=== PATIENT | female | born 1940 | race Caucasian/White ===

== ENCOUNTER 2017-09-24 09:50 | Emergency (ER) | payer MEDICARE, OTHER ==
[2017-09-24 10:11] VITALS: BP 157/78
--- NOTE | 2017-09-24 10:40 | EDM.PDOC ---
ED HPI GENERAL MEDICAL PROBLEM - General Chief Complaint: General Stated Complaint: MEDICAL VIA [facility] Time Seen by Provider: 09/24/17 10:22 Source of Information: Reports: Patient, RN Notes Reviewed History Limitations: Reports: No Limitations - History of Present Illness INITIAL COMMENTS - FREE TEXT/NARRATIVE: This 76-year-old female presents emergency department today via EMS services for sudden onset of nausea and vomiting, she states she's had this for the last couple days does have a history of vertigo she states this particular event started when she rolled over in bed put her head to the left side sudden onset of nausea and vomiting, feels like typical events she's had in the past also does have a history of ovarian cancer - Related Data Allergies Allergy/AdvReac Type Severity Reaction Status Date / Time Sulfa (Sulfonamide Allergy Unknown Rash Verified 09/13/14 11:36 Antibiotics) codeine AdvReac Unknown Vomiting Verified 09/13/14 11:36 Home Meds: Home Meds Aspirin 81 mg PO DAILY 06/16/13 [History] Etodolac 400 mg PO BID 06/16/13 [History] Levothyroxine Sodium [Synthroid] 75 mcg PO DAILY 06/16/13 [History] Lisinopril [Prinivil] 20 mg PO DAILY 06/16/13 [History] Nitroglycerin [Nitrostat] 0.4 mg SL ASDIRECTED PRN 06/16/13 [History] Venlafaxine HCl [Venlafaxine ER] 150 mg PO DAILY 06/16/13 [History] Multivitamin [Multivitamins] 1 each PO DAILY 08/21/13 [History] Metoprolol Tartrate [Lopressor] 100 mg PO BID #60 tablet 09/20/14 [Rx] Albuterol Sulfate [Proair Hfa] 2 puff INH Q4H PRN 09/24/17 [History] Nicotine [Nicoderm CQ] 1 patch TOP DAILY 09/24/17 [History] atorvaSTATin [Lipitor] 20 mg PO DAILY 09/24/17 [History] tiZANidine [Zanaflex] 4 mg PO TID PRN 09/24/17 [History] Past Medical History Cardiovascular History: Reports: Hypertension Respiratory History: Reports: Bronchitis, Recurrent 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: Musculoskeletal History: Reports: Back Pain, Chronic Endocrine/Metabolic History: Reports: Hypothyroidism Oncologic (Cancer) History: Reports: Ovarian - Infectious Disease History Infectious Disease History: Reports: Chicken Pox, Measles, Mumps, Shingles - Past Surgical History GI Surgical History: Reports: Appendectomy, Cholecystectomy Musculoskeletal Surgical History: Reports: Knee Replacement Social & Family History - Tobacco Use Smoking Status *Q: Current Every Day Smoker Years of Tobacco use: 50 Packs/Tins Daily: 0.5 Used Tobacco, but Quit: No Month Tobacco Last Used: September Second Hand Smoke Exposure: No - Caffeine Use Caffeine Use: Reports: Coffee - Alcohol Use Days Per Week of Alcohol Use: 1 Number of Drinks Per Day: 2 Total Drinks Per Week: 2 - Recreational Drug Use Recreational Drug Use: No ED ROS GENERAL - Review of Systems Review Of Systems: See Below Constitutional: Denies: Fever, Chills HEENT: Reports: No Symptoms Respiratory: Reports: No Symptoms Cardiovascular: Reports: No Symptoms GI/Abdominal: Reports: No Symptoms : Reports: No Symptoms ED EXAM, GENERAL - Physical Exam Exam: See Below Free Text/Narrative:: General: Female, not in any distress, alert and oriented x3 HEENT: head is atraumatic normocephalic, eyes pupils equal round reactive to light, sclera clear no conjunctivitis appreciated extraocular eye movements intact. Ears tympanic membranes clear and smiley landmarks and light reflex are present bilaterally canals are clear. Nose no septal deviation, nares are clear, no blood present. Mouth mucosa is dry and pink no erythema or exudate noted in soft palate, tongue is midline uvula is midline, dentition is intact. Neck: Supple no thyromegaly no tracheal deviation. Nodes: Cervical nodes subclavicular nodes nontender no palpable lymphadenopathy noted. Lungs: clear to auscultation bilaterally with symmetrical respirations, no adventitious noise appreciated. CV: Regular rate and rhythm S1 and S2 appreciated no murmurs rubs or gallops noted. cover uncover test negative, no saccade on HINTS exam Course - Vital Signs Last Recorded V/S: Last Vital Signs Temp 98.2 F 09/24/17 10:10 Pulse 66 09/24/17 10:10 Resp 23 H 09/24/17 10:10 BP 157/78 H 09/24/17 10:10 Pulse Ox 95 09/24/17 10:10 - Orders/Labs/Meds Orders: Active Orders 24 hr Category Date Time Status UA W/MICROSCOPIC [URIN] Urgent Lab 12/12/17 10:33 Uncollected Labs: Laboratory Tests 09/24/17 09/24/17 Range/Units 10:50 10:50 WBC 9.2 (4.5-11.0) K/uL RBC 4.17 (3.30-5.50) M/uL Hgb 13.2 D (12.0-15.0) g/dL Hct 41.5 (36.0-48.0) % MCV 100 H (80-98) fL MCH 32 H (27-31) pg MCHC 32 (32-36) % Plt Count 466 H (150-400) K/uL Neut % (Auto) 71 H (36-66) % Lymph % (Auto) 17 L (24-44) % [place] % (Auto) 5 (2-6) % Eos % (Auto) 5 H (2-4) % Baso % (Auto) 1 (0-1) % Sodium 142 (140-148) mmol/L Potassium 4.4 (3.6-5.2) mmol/L Chloride 107 (100-108) mmol/L Carbon Dioxide 26 (21-32) mmol/L Anion Gap 9.5 (5.0-14.0) mmol/L BUN 16 (7-18) mg/dL Creatinine 1.3 H (0.6-1.0) mg/dL Est Cr Clr Drug Dosing 30.03 mL/min Estimated GFR (MDRD) 40 L (>60) Glucose 117 H (74-106) mg/dL Calcium 9.2 D (8.5-10.1) mg/dL Total Bilirubin 0.3 (0.2-1.0) mg/dL AST 18 (15-37) U/L ALT 15 D (12-78) U/L Alkaline Phosphatase 109 (46-116) U/L Total Protein 7.2 (6.4-8.2) g/dL Albumin 1.9 L (3.4-5.0) g/dL Globulin 5.3 H (2.3-3.5) g/dL Albumin/Globulin Ratio 0.4 L (1.2-2.2) Meds: Medications Discontinued Medications Generic Name Dose Route Start Last Admin Trade Name Freq PRN Reason Stop Dose Admin Meclizine HCl 25 mg 09/24/17 11:04 09/24/17 11:08 Antivert PO 09/24/17 11:05 25 mg ONETIME ONE Administration Departure - Departure Time of Disposition: 12:39 Disposition: Home, Self-Care 01 Condition: Good Clinical Impression: Vertigo - Discharge Information Referrals: Faith Mackay CNM [Primary Care Provider] - Forms: ED Department Discharge Additional Instructions: Continue your regular medications, try the meclizine 1 tablet up to 3 times a day as needed for dizzy symptoms, Please followup with your primary care provider in 3-5 days if not better, please call return to the emergency department with worsening of symptoms. - My Orders Last 24 Hours: My Active Orders 09/24/17 10:33 UA W/MICROSCOPIC [URIN] Urgent - Assessment/Plan Last 24 Hours: My Active Orders 09/24/17 10:33 UA W/MICROSCOPIC [URIN] Urgent Plan: Assessment Acuity = acute on chronic Site and laterality = exacerbation of vertigo Etiology unclear etiology Manifestations = none Location of injury = Home Lab values = creatinine elevated 1.3 consistent chronic renal failure stage G IIIB albumin low at 1.9 consistent hypoalbuminemia EKG performed in route by EMS demonstrates a normal sinus rhythm no ST changes or elevations noted Plan she had good improvement with meclizine provided with resolution of her symptoms follow-up with her primary care as needed Patient was in agreement with the plan all questions were answered, they were instructed to return to the emergency department or call for worsening symptoms. This note was dictated using [employer] voice recognition software please call with any questions.
[2017-09-24] MEDS ORDERED: Meclizine 25 MG Tab PO ONE (11:04)
== END 2017-09-24 12:54 | disposition home or self-care (01) ==
LOC: JP.ED 09:50
DX: R42 Dizziness and giddiness (principal); I10 Essential (primary) hypertension; E03.9 Hypothyroidism, unspecified; F17.210 Nicotine dependence, cigarettes, uncomplicated; Z79.899 Other long term (current) drug therapy; Z79.82 Long term (current) use of aspirin; Z88.2 Allergy status to sulfonamides; Z88.5 Allergy status to narcotic agent
CPT/HCPCS: 36415; 80053; 85025; 99284; A9270; 99283

== ENCOUNTER 2018-01-11 08:23 | Inpatient (IN) | payer MEDICARE, OTHER ==
[2018-01-11] MEDS ORDERED: Loperamide 1 MG/5 ML Soln 5 ML UD Cup PO ONE (09:12)
[2018-01-11] MEDS ORDERED: Sodium Chloride 0.9% 1,000 ML IV SCH (09:15)
[2018-01-11] MEDS ORDERED: Loperamide 2 MG Cap PO ONE (09:30)
--- NOTE | 2018-01-11 09:32 | EDM.PDOC ---
ED HPI GENERAL MEDICAL PROBLEM - General Chief Complaint: General Stated Complaint: MEDICAL [facility]IA [facility] Time Seen by Provider: 01/11/18 09:28 Source of Information: Reports: Patient History Limitations: Reports: No Limitations - History of Present Illness INITIAL COMMENTS - FREE TEXT/NARRATIVE: pt developed severe jaw pain which wouldn,t go away. She states she took 1 nitro at home and it got alot better. Onset: Today, Sudden, Other (pt just had chemo and she has been having severe diarrhea. ) Duration: Hour(s): Location: Reports: Chest, Other (pt has a history of ovarian ca. ) Associated Symptoms: Reports: Other (diarhea) Denies Pain Score (Numeric/FACES): 0 Generalized Pain Score (Numeric/FACES): 0 - Related Data Allergies Allergy/AdvReac Type Severity Reaction Status Date / Time Sulfa (Sulfonamide Allergy Unknown Rash Verified 01/11/18 09:37 Antibiotics) codeine AdvReac Unknown Vomiting Verified 01/11/18 09:37 Home Meds: Home Meds Aspirin 81 mg PO DAILY 06/16/13 [History] Etodolac 400 mg PO BID 06/16/13 [History] Levothyroxine Sodium [Synthroid] 75 mcg PO DAILY 06/16/13 [History] Lisinopril [Prinivil] 5 mg PO DAILY 06/16/13 [History] Nitroglycerin [Nitrostat] 0.4 mg SL ASDIRECTED PRN 06/16/13 [History] Venlafaxine HCl [Venlafaxine ER] 150 mg PO DAILY 06/16/13 [History] Multivitamin [Multivitamins] 1 each PO DAILY 08/21/13 [History] Metoprolol Tartrate [Lopressor] 100 mg PO BID #60 tablet 09/20/14 [Rx] Albuterol Sulfate [Proair Hfa] 2 puff INH Q4H PRN 09/24/17 [History] atorvaSTATin [Lipitor] 20 mg PO DAILY 09/24/17 [History] tiZANidine [Zanaflex] 4 mg PO TID PRN 09/24/17 [History] Prochlorperazine Maleate [Compazine] 10 mg PO ASDIRECTED PRN 01/08/18 [History] Lactobacillus Rhamnosus GG [Culturelle] 1 cap PO BID #60 cap 01/13/18 [Rx] Pantoprazole [ProTONIX] 40 mg PO DAILY #30 tab.cr 01/13/18 [Rx] Vancomycin [Vancocin 250 MG/5 ML Soln] 125 mg PO QID #120 ml 01/13/18 [Rx] Past Medical History Cardiovascular History: Reports: Hypertension Respiratory History: Reports: Bronchitis, 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: Musculoskeletal History: Reports: Back Pain, Chronic Endocrine/Metabolic History: Reports: Hypothyroidism Oncologic (Cancer) History: Reports: Ovarian - Infectious Disease History Infectious Disease History: Reports: Chicken Pox, Measles, Mumps, Shingles - Past Surgical History GI Surgical History: Reports: Appendectomy, Cholecystectomy Musculoskeletal Surgical History: Reports: Knee Replacement Social & Family History - Tobacco Use Smoking Status *Q: Current Every Day Smoker Years of Tobacco use: 50 Packs/Tins Daily: 0.5 Used Tobacco, but Quit: No Month/Year Tobacco Last Used: September Second Hand Smoke Exposure: No - Caffeine Use Caffeine Use: Reports: Coffee - Alcohol Use Days Per Week of Alcohol Use: 1 Number of Drinks Per Day: 2 Total Drinks Per Week: 2 - Recreational Drug Use Recreational Drug Use: No ED ROS GENERAL - Review of Systems Review Of Systems: See Below Constitutional: Reports: No Symptoms HEENT: Reports: No Symptoms Respiratory: Reports: No Symptoms Cardiovascular: Reports: No Symptoms Endocrine: Reports: No Symptoms GI/Abdominal: Reports: Diarrhea, Other ( chest pain. ) : Reports: No Symptoms Musculoskeletal: Reports: No Symptoms Skin: Reports: No Symptoms ED EXAM, GENERAL - Physical Exam Exam: See Below Free Text/Narrative:: pt developed severe jaw pain when she got up this am. She has had multiple loose stools during the nite. She did just finish a course of chemo. Exam Limited By: No Limitations General Appearance: Alert, Mild Distress, Other ( The jaw pain went away with the one nitro and she is pain free now. She has had multiple loose stools since she arrived. ) Ears: Normal TMs Nose: Normal Inspection Throat/Mouth: Normal Inspection Head: Atraumatic Neck: Normal Inspection Respiratory/Chest: No Respiratory Distress Cardiovascular: Regular Rate, Rhythm, Tachycardia GI/Abdominal: Soft, Non-Tender, Other ( The stools she is having is very loose and alot of mucous) (Female) Exam: Deferred Rectal (Female) Exam: Deferred Back Exam: Normal Inspection Extremities: Normal Inspection Neurological: Alert, Oriented, Normal Cognition Psychiatric: Normal Affect Course - Vital Signs Last Recorded V/S: Last Vital Signs Temp 36.3 C 01/13/18 07:48 Pulse 66 01/13/18 08:01 Resp 18 01/13/18 07:48 BP 135/79 01/13/18 08:01 Pulse Ox 100 01/13/18 07:48 - Orders/Labs/Meds Labs: Laboratory Tests 01/11/18 01/11/18 01/11/18 Range/Units 08:51 08:51 08:51 WBC 1.6 L (4.5-11.0) K/uL RBC 3.74 (3.30-5.50) M/uL Hgb 12.0 (12.0-15.0) g/dL Hct 36.0 (36.0-48.0) % MCV 96 (80-98) fL MCH 32 H (27-31) pg MCHC 33 (32-36) % Plt Count 451 H (150-400) K/uL Neut % (Auto) 8 L (36-66) % Lymph % (Auto) 61 H (24-44) % [place] % (Auto) 21 H (2-6) % Eos % (Auto) 7 H (2-4) % Baso % (Auto) 3 H (0-1) % Sodium 136 L (140-148) mmol/L Potassium 4.4 (3.6-5.2) mmol/L Chloride 102 (100-108) mmol/L Carbon Dioxide 23 (21-32) mmol/L Anion Gap 15.4 H (5.0-14.0) mmol/L BUN 46 H D (7-18) mg/dL Creatinine 1.5 H (0.6-1.0) mg/dL Est Cr Clr Drug Dosing 25.63 mL/min Estimated GFR (MDRD) 34 L (>60) Glucose 118 H (74-106) mg/dL Calcium 8.9 (8.5-10.1) mg/dL Total Bilirubin 0.3 (0.2-1.0) mg/dL AST 33 D (15-37) U/L ALT 30 D (12-78) U/L Alkaline Phosphatase 95 (46-116) U/L Troponin I < 0.017 (0.000-0.056) ng/mL Total Protein 7.2 (6.4-8.2) g/dL Albumin 2.8 L (3.4-5.0) g/dL Globulin 4.4 H (2.3-3.5) g/dL Albumin/Globulin Ratio 0.6 L (1.2-2.2) Meds: Medications Discontinued Medications Generic Name Dose Route Start Last Admin Trade Name Freq PRN Reason Stop Dose Admin Acetaminophen 650 mg 01/11/18 13:20 01/13/18 04:14 Tylenol PO 650 mg Q4H PRN Administration Pain (Mild 1-3)/fever Aspirin 81 mg 01/12/18 09:00 01/13/18 08:00 Aspirin PO 81 mg DAILY MARIA A Administration Atorvastatin Calcium 20 mg 01/11/18 21:00 01/12/18 20:50 Lipitor PO Not Given BEDTIME MARIA A Etodolac 400 mg 01/11/18 21:00 Etodolac PO BID MARIA A Sodium Chloride 1,000 mls @ 999 mls/hr 01/11/18 09:15 01/11/18 09:24 Normal Saline IV 999 mls/hr ASDIRECTED MARIA A Administration Sodium Chloride 1,000 mls @ 125 mls/hr 01/11/18 13:20 01/12/18 06:43 Normal Saline IV 125 mls/hr ASDIRECTED MARIA A Administration Lactobacillus Rhamnosus 1 cap 01/11/18 21:00 01/13/18 08:00 Culturelle PO 1 cap BID MARIA A Administration Levothyroxine Sodium 75 mcg 01/12/18 07:30 01/13/18 07:59 Levothyroxine PO 75 mcg DAILY@0730 MARIA A Administration Lisinopril 5 mg 01/12/18 09:00 01/13/18 08:00 Prinivil PO 5 mg DAILY MARIA A Administration Loperamide HCl 4 mg 01/11/18 09:30 01/11/18 09:24 Imodium PO 01/11/18 09:31 4 mg ONETIME ONE Administration Metoprolol Tartrate 100 mg 01/11/18 21:00 01/13/18 08:01 Lopressor PO 100 mg BID MARIA A Administration Ondansetron HCl 4 mg 01/11/18 13:20 Zofran Odt PO Q6H PRN Nausea able to take PO Ondansetron HCl 4 mg 01/11/18 13:20 Zofran IV Q6H PRN Nausea/Vomiting Oxycodone HCl 5 mg 01/11/18 13:20 Oxycodone PO Q4H PRN Pain (moderate 4-6) Pantoprazole Sodium 40 mg 01/11/18 16:30 01/13/18 07:59 Protonix PO 40 mg BIDAC MARIA A Administration Tizanidine HCl 4 mg 01/11/18 13:20 Zanaflex PO TID PRN Spasms Vancomycin HCl 125 mg 01/11/18 16:00 01/13/18 10:45 Vancocin 250 Mg/5 Ml Soln PO 125 mg QID MARIA A Administration Venlafaxine HCl 150 mg 01/12/18 09:00 01/13/18 08:01 Effexor Xr PO 150 mg DAILY MARIA A Administration - Re-Assessments/Exams Free Text/Narrative Re-Assessment/Exam: 01/11/18 10:32 pt has a positive cdiff. She has a normal trop. She has a creatnine of 1.5. She has evidence of dehydration. Her wbc is 1500. Departure - Departure Time of Disposition: 10:33 Disposition: Admitted As Inpatient 68 Condition: Fair Clinical Impression: Clostridial infection, Dehydration, Jaw pain - Discharge Information
--- NOTE | 2018-01-11 11:39 | PCM.HP ---
H&P History of Present Illness - General Date of Service: 01/11/18 Admit Problem/Dx: Admission Diagnosis/Problem Admission Diagnosis/Problem Clostridium difficile diarrhea Source of Information: Patient, Provider History Limitations: Reports: No Limitations - History of Present Illness Initial Comments - Free Text/Narative: Sofia presented to the ER this morning with bilateral jaw pressure and left shoulder pain. She reports onset of moderately severe pressure in her jaws that radiated to the left shoulder. She will not call it pain but says it was more of a pressure discomfort. When the pain did not get better after a few minutes she decided take a nitroglycerin which completely relieved the pain. She has never had pain like this before. She was concerned because her had jaw pain at the time of a heart attack years ago. She also reports having multiple watery diarrheal stools over the past several days. She has had significant nausea for the last 3 or 4 days and has had very little to eat or drink other than supper last night. She is not aware of any fevers. She does not have any abdominal pain. She has not vomited. No recent antibiotics. She has had recent chemotherapy for her ovarian cancer. Workup in the emergency room revealed leukopenia and evidence for Clostridium difficile colitis. EKG did not suggest ischemia and troponin was undetectable. She will be admitted for management of Clostridium difficile colitis. Denies Pain Score (Numeric/FACES): 0 - Related Data Allergies/Adverse Reactions: Allergies Allergy/AdvReac Type Severity Reaction Status Date / Time Sulfa (Sulfonamide Allergy Unknown Rash Verified 01/11/18 09:37 Antibiotics) codeine AdvReac Unknown Vomiting Verified 01/11/18 09:37 Home Medications: Home Meds Aspirin 81 mg PO DAILY 06/16/13 [History] Etodolac 400 mg PO BID 06/16/13 [History] Levothyroxine Sodium [Synthroid] 75 mcg PO DAILY 06/16/13 [History] Lisinopril [Prinivil] 5 mg PO DAILY 06/16/13 [History] Nitroglycerin [Nitrostat] 0.4 mg SL ASDIRECTED PRN 06/16/13 [History] Venlafaxine HCl [Venlafaxine ER] 150 mg PO DAILY 06/16/13 [History] Multivitamin [Multivitamins] 1 each PO DAILY 08/21/13 [History] Metoprolol Tartrate [Lopressor] 100 mg PO BID #60 tablet 09/20/14 [Rx] Albuterol Sulfate [Proair Hfa] 2 puff INH Q4H PRN 09/24/17 [History] atorvaSTATin [Lipitor] 20 mg PO DAILY 09/24/17 [History] tiZANidine [Zanaflex] 4 mg PO TID PRN 09/24/17 [History] Prochlorperazine Maleate [Compazine] 10 mg PO ASDIRECTED PRN 01/08/18 [History] Past Medical History HEENT History: Reports: Hard of Hearing, Impaired Vision Cardiovascular History: Reports: Hypertension Respiratory History: Reports: Bronchitis, Recurrent Genitourinary History: Reports: Other (See Below) Other Genitourinary History: l kidney not working. BIN FILLER History: Reports: Musculoskeletal History: Reports: Back Pain, Chronic Neurological History: Reports: Other (See Below) Other Neuro History: fibro myalgia Psychiatric History: Reports: Depression Endocrine/Metabolic History: Reports: Hypothyroidism Oncologic (Cancer) History: Reports: Ovarian - Infectious Disease History Infectious Disease History: Reports: Chicken Pox, Measles, Mumps, Shingles - Past Surgical History GI Surgical History: Reports: Appendectomy, Cholecystectomy Musculoskeletal Surgical History: Reports: Knee Replacement Social & Family History - Family History Cardiac: Reports: Afib, Arrhythmia - Tobacco Use Smoking Status *Q: Current Every Day Smoker Years of Tobacco use: 50 Packs/Tins Daily: 0.5 Used Tobacco, but Quit: No Month/Year Tobacco Last Used: September Second Hand Smoke Exposure: No - Caffeine Use Caffeine Use: Reports: Coffee - Alcohol Use Days Per Week of Alcohol Use: 1 Number of Drinks Per Day: 2 Total Drinks Per Week: 2 - Recreational Drug Use Recreational Drug Use: No H&P Review of Systems - Review of Systems: Review Of Systems: See Below Free Text/Narrative: A complete 12 point review of systems was obtained. Pertinent positives and negatives are noted in the history of present illness. All other systems were reviewed and were negative except as noted. Exam - Exam Exam: See Below - Vital Signs Vital Signs: Last Vital Signs Temp 35.7 C 01/11/18 09:10 Pulse 68 01/11/18 09:10 Resp 22 H 01/11/18 09:10 BP 113/77 01/11/18 09:10 Pulse Ox 97 01/11/18 09:10 Weight: 89.358 kg - Exam Quality Assessment: No: Supplemental Oxygen General: Alert, Oriented, Cooperative. No: Mild Distress HEENT: Conjunctiva Clear, Other (poor dentition ). No: Mucosa Moist & [place] (dry ), Scleral Icterus Neck: Supple, Trachea Midline Lungs: Clear to Auscultation, Normal Respiratory Effort Cardiovascular: Regular Rate, Regular Rhythm, Systolic Murmur GI/Abdominal Exam: Normal Bowel Sounds, Soft, Non-Tender, No Distention Back Exam: Normal Inspection, Full Range of Motion Extremities: No Pedal Edema. No: Increased Warmth Peripheral Pulses: 2+: Dorsalis Pedis (L), Dorsalis Pedis (R) Skin: Warm, Dry Neuro Extensive - Mental Status: Alert, Oriented x3, Nl Response to Commands Neuro Extensive - Motor, Sensory, Reflexes: CN II-XII Intact. No: Dysarthria, Abnormal Motor, Tremor - Patient Data Lab Results Last 24 hrs: Laboratory Results - last 24 hr 01/11/18 01/11/18 01/11/18 Range/Units 08:51 08:51 08:51 WBC 1.6 L (4.5-11.0) K/uL RBC 3.74 (3.30-5.50) M/uL Hgb 12.0 (12.0-15.0) g/dL Hct 36.0 (36.0-48.0) % MCV 96 (80-98) fL MCH 32 H (27-31) pg MCHC 33 (32-36) % Plt Count 451 H (150-400) K/uL Neut % (Auto) 8 L (36-66) % Lymph % (Auto) 61 H (24-44) % [place] % (Auto) 21 H (2-6) % Eos % (Auto) 7 H (2-4) % Baso % (Auto) 3 H (0-1) % Sodium 136 L (140-148) mmol/L Potassium 4.4 (3.6-5.2) mmol/L Chloride 102 (100-108) mmol/L Carbon Dioxide 23 (21-32) mmol/L Anion Gap 15.4 H (5.0-14.0) mmol/L BUN 46 H D (7-18) mg/dL Creatinine 1.5 H (0.6-1.0) mg/dL Est Cr Clr Drug Dosing 25.63 mL/min Estimated GFR (MDRD) 34 L (>60) Glucose 118 H (74-106) mg/dL Calcium 8.9 (8.5-10.1) mg/dL Total Bilirubin 0.3 (0.2-1.0) mg/dL AST 33 D (15-37) U/L ALT 30 D (12-78) U/L Alkaline Phosphatase 95 (46-116) U/L Troponin I < 0.017 (0.000-0.056) ng/mL Total Protein 7.2 (6.4-8.2) g/dL Albumin 2.8 L (3.4-5.0) g/dL Globulin 4.4 H (2.3-3.5) g/dL Albumin/Globulin Ratio 0.6 L (1.2-2.2) Result Diagrams: 01/11/18 08:51 01/11/18 08:51 Dylon Results Last 24 hrs: Microbiology 01/11/18 09:23 Clostridium difficile (PCR) - Final Stool / Feces Positive C. Diff Toxin Imaging Impressions Last 24 hrs: CXR - images personally reviewed - no mass, infiltrate noted. Probable small right effusion. Heart size borderline enlarged. *Q Meaningful Use (ADM) - VTE Risk Assess *Q Each Risk Factor Represents 1 Point: Obesity ( BMI > 25 kg/m2) Total Score 1 Point Risk Factors: 1 Each Risk Factor Represents 2 Points: Malignancy (present or previous) Total Score 2 Point Risk Factors: 2 Each Risk Factor Represents 3 Points: Age 75 Years or Greater Total Score 3 Point Risk Factors: 3 Each Risk Factor Represents 5 Points: None Total Score 5 Point Risk Factors: 0 Venous Thromboembolism Risk Factor Score *Q: 6 - Problem List (1) Clostridium difficile diarrhea SNOMED Code(s): 9474340694928 ICD Code: A04.72 - ENTEROCOLITIS D/T CLOSTRIDIUM DIFFICILE, NOT SPCF RECUR Status: Acute Current Visit: Yes (2) Dehydration SNOMED Code(s): 14858764 ICD Code: E86.0 - DEHYDRATION Status: Acute Current Visit: Yes (3) Jaw pain SNOMED Code(s): 113070169 ICD Code: R68.84 - JAW PAIN Status: Acute Current Visit: Yes (4) Ovarian cancer on left SNOMED Code(s): 431378196 ICD Code: C56.2 - MALIGNANT NEOPLASM OF LEFT OVARY Status: Chronic Current Visit: Yes (5) CKD (chronic kidney disease), stage III SNOMED Code(s): 836852985 ICD Code: N18.3 - CHRONIC KIDNEY DISEASE, STAGE 3 (MODERATE) Status: Chronic Current Visit: Yes Problem List Initiated/Reviewed/Updated: Yes Orders Last 24hrs: Active Orders 24 hr Category Date Time Status Patient Status Manage Transfer [TRANSFER] Routine ADT 01/11/18 11:24 Ordered Chest 1V Frontal [CR] Stat Exams 01/11/18 10:14 Taken CLOSTRIDIUM DIFFICILE BY PCR [RM] Stat Lab 01/11/18 09:23 Ordered CULTURE STOOL + SHIGATOX [RM] Stat Lab 01/11/18 09:23 Received UA W/MICROSCOPIC [URIN] Urgent Lab 01/11/18 08:51 Ordered Sodium Chloride 0.9% [Normal Saline] 1,000 ml Med 01/11/18 09:15 Active IV ASDIRECTED Resuscitation Status Routine Resus Stat 01/11/18 11:26 Ordered Medication Orders Sodium Chloride (Normal Saline) 1,000 mls @ 999 mls/hr IV ASDIRECTED MARIA A Last Admin: 01/11/18 09:24 Dose: 999 mls/hr Assessment/Plan Comment:: ASSESSMENT AND PLAN - Clostridium difficile colitis - no recent antibiotics. Suspect immunosuppressed state as the cause. Infection is complicated by active malignancy and chemotherapy. She is moderately dehydrated but does not appear acutely ill beyond that. -Vancomycin 125 mg 4 times daily -IV fluids through the day -Contact precautions -probiotics Jaw pain/pressure - Some concern for anginal equivalent. Initial troponin and EKG did not suggest ischemia. Pain is resolved at this time. His gastrointestinal source for pain most likely given recent nausea and active colitis. -Second troponin -Twice daily PPI -Additional symptomatic management Stage III chronic kidney disease - Creatinine is very near recent baseline but there is evidence for some dehydration. -IV fluids -Repeat labs in the morning Ovarian cancer - Followed by the [facility], receiving chemotherapy locally. Has had recent chemotherapy. -Outpatient follow-up Maintenance issues - - DVT prophylaxis - Mechanical - GI prophylaxis - PPI - Nutrition - mechanical soft - Miller catheter - Not indicated CODE STATUS - Full code Admission justification - This patient will be admitted for inpatient services and is medically appropriate meeting medical necessity for inpatient admission as outlined in my documentation. I reasonably expect the patient will require inpatient services that span a period time over 2 midnights. I reasonably expect this patient to be discharged or transferred within 96 hours after admission to the [facility]. Disposition - Anticipate discharge home after the hospital stay Primary care physician - Lilibeth Woodruff M.D.
[2018-01-11] MEDS ORDERED: tiZANidine 4 MG Tab PO PRN (13:20)
[2018-01-11] MEDS ORDERED: oxyCODONE 5 MG Tab PO PRN (13:20)
[2018-01-11] MEDS ORDERED: Ondansetron 4 MG Tab.DIS PO PRN (13:20)
[2018-01-11] MEDS ORDERED: Ondansetron 4 MG/2 ML SDV IV PRN (13:20)
[2018-01-11] MEDS: Pantoprazole 40 MG Tab.CR PO SCH (17:20)
[2018-01-11] MEDS: Vancomycin 250 MG/5 ML ML Oral Solution PO SCH ×2 (17:20→21:49)
[2018-01-11] MEDS: Venlafaxine 75 MG Cap.ER PO SCH (20:15)
[2018-01-11] MEDS: Lactobacillus Rhamnosus GG (Probiotic) Cap PO SCH (20:16)
[2018-01-11] MEDS: atorvaSTATin 20 MG Tab PO SCH (20:17)
[2018-01-11] MEDS: Metoprolol Tartrate 50 MG Tab PO SCH (20:18)
[2018-01-11] MEDS ORDERED: ETODOLAC 400 MG PO SCH (21:00)
[2018-01-11] MEDS: Sodium Chloride 0.9% 1,000 ML IV SCH (21:49)
[2018-01-11] MEDS: Acetaminophen 325 MG Tab PO PRN (23:06)
[2018-01-12] MEDS: Vancomycin 250 MG/5 ML ML Oral Solution PO SCH ×4 (06:42→21:00)
[2018-01-12] MEDS: Sodium Chloride 0.9% 1,000 ML IV SCH (06:43)
[2018-01-12] MEDS: Lactobacillus Rhamnosus GG (Probiotic) Cap PO SCH ×2 (08:05→20:49)
[2018-01-12] MEDS: Metoprolol Tartrate 50 MG Tab PO SCH ×2 (08:05→20:50)
[2018-01-12] MEDS: Aspirin 81 MG Tab.Chew PO SCH (08:05)
[2018-01-12] MEDS: Levothyroxine 75 MCG Tab PO SCH (08:05)
[2018-01-12] MEDS: Pantoprazole 40 MG Tab.CR PO SCH ×2 (08:05→16:25)
[2018-01-12] MEDS: Lisinopril 5 MG Tab PO SCH (08:06)
[2018-01-12] MEDS: Venlafaxine 75 MG Cap.ER PO SCH (08:07)
--- NOTE | 2018-01-12 10:38 | PCM.PN ---
- General Info Date of Service: 01/12/18 Functional Status: Reports: Pain Controlled, Tolerating Diet - Review of Systems General: Denies: Fever Cardiovascular: Denies: Chest Pain Gastrointestinal: Reports: Diarrhea Systems Review Comment:: no acute events overnight. No recurrence of the jaw pain overnight but she did have some pain this morning. Bilateral jaw pain resolved after drinking water and belching. She has had several episodes of watery diarrhea but no fevers or abdominal pain. White blood cell count is slightly better today but absolute neutrophil count is still very low. Patient feels well and is tolerating her diet. She is hoping to be able to go home tomorrow. - Patient Data Vitals - Most Recent: Last Vital Signs Temp 37.0 C 01/12/18 08:01 Pulse 73 01/12/18 08:05 Resp 16 01/12/18 08:01 BP 130/62 01/12/18 08:06 Pulse Ox 97 01/12/18 08:01 Weight - Most Recent: 88.723 kg I&O - Last 24 Hours: Intake & Output 01/11/18 01/12/18 01/12/18 22:59 06:59 14:59 Intake Total 480 1982 Output Total 100 850 Balance 380 1132 Lab Results Last 24 Hours: Laboratory Results - last 24 hr 01/11/18 01/12/18 01/12/18 Range/Units 15:21 01:05 05:18 WBC 2.2 L (4.5-11.0) K/uL RBC 3.37 (3.30-5.50) M/uL Hgb 10.8 L (12.0-15.0) g/dL Hct 33.1 L (36.0-48.0) % MCV 98 (80-98) fL MCH 32 H (27-31) pg MCHC 33 (32-36) % Plt Count 351 (150-400) K/uL Neut % (Auto) 6 L (36-66) % Lymph % (Auto) 62 H (24-44) % [place] % (Auto) 23 H (2-6) % Eos % (Auto) 7 H (2-4) % Baso % (Auto) 2 H (0-1) % Sodium (140-148) mmol/L Potassium (3.6-5.2) mmol/L Chloride (100-108) mmol/L Carbon Dioxide (21-32) mmol/L Anion Gap (5.0-14.0) mmol/L BUN (7-18) mg/dL Creatinine (0.6-1.0) mg/dL Est Cr Clr Drug Dosing mL/min Estimated GFR (MDRD) (>60) Glucose (74-106) mg/dL Calcium (8.5-10.1) mg/dL Magnesium (1.8-2.4) mg/dL Troponin I < 0.017 (0.000-0.056) ng/mL Urine Color Yellow Urine Appearance Cloudy Urine pH 5.0 (4.5-8.0) Ur Specific [place] 1.020 (1.008-1.030) Urine Protein Negative (NEGATIVE) mg/dL Urine Glucose (UA) Normal (NEGATIVE) mg/dL Urine Ketones Negative (NEGATIVE) mg/dL Urine Occult Blood Negative (NEGATIVE) Urine Nitrite Negative (NEGATIVE) Urine Bilirubin Small (NEGATIVE) Urine Urobilinogen Normal (NORMAL) mg/dL Ur Leukocyte Esterase Negative (NEGATIVE) Urine RBC Not seen (0-5) Urine WBC 0-5 (0-5) Ur Epithelial Cells Few Amorphous Sediment Not seen Urine Bacteria Many Urine Mucus Not seen 01/12/18 Range/Units 05:18 WBC (4.5-11.0) K/uL RBC (3.30-5.50) M/uL Hgb (12.0-15.0) g/dL Hct (36.0-48.0) % MCV (80-98) fL MCH (27-31) pg MCHC (32-36) % Plt Count (150-400) K/uL Neut % (Auto) (36-66) % Lymph % (Auto) (24-44) % [place] % (Auto) (2-6) % Eos % (Auto) (2-4) % Baso % (Auto) (0-1) % Sodium 141 (140-148) mmol/L Potassium 4.2 (3.6-5.2) mmol/L Chloride 108 (100-108) mmol/L Carbon Dioxide 22 (21-32) mmol/L Anion Gap 11.4 (5.0-14.0) mmol/L BUN 29 H (7-18) mg/dL Creatinine 1.3 H (0.6-1.0) mg/dL Est Cr Clr Drug Dosing 29.57 mL/min Estimated GFR (MDRD) 40 L (>60) Glucose 108 H (74-106) mg/dL Calcium 7.9 L (8.5-10.1) mg/dL Magnesium 2.0 D (1.8-2.4) mg/dL Troponin I (0.000-0.056) ng/mL Urine Color Urine Appearance Urine pH (4.5-8.0) Ur Specific [place] (1.008-1.030) Urine Protein (NEGATIVE) mg/dL Urine Glucose (UA) (NEGATIVE) mg/dL Urine Ketones (NEGATIVE) mg/dL Urine Occult Blood (NEGATIVE) Urine Nitrite (NEGATIVE) Urine Bilirubin (NEGATIVE) Urine Urobilinogen (NORMAL) mg/dL Ur Leukocyte Esterase (NEGATIVE) Urine RBC (0-5) Urine WBC (0-5) Ur Epithelial Cells Amorphous Sediment Urine Bacteria Urine Mucus Dylon Results Last 24 Hours: Microbiology 01/11/18 09:23 Stool Culture - Preliminary Stool / Feces - Final NEGATIVE FOR SHIGA TOXIN 1 - Final NEGATIVE FOR SHIGA TOXIN 2 01/11/18 09:23 Clostridium difficile (PCR) - Final Stool / Feces Positive C. Diff Toxin Med Orders - Current: Current Medications Acetaminophen (Tylenol) 650 mg PO Q4H PRN PRN Reason: Pain (Mild 1-3)/fever Last Admin: 01/11/18 23:06 Dose: 650 mg Aspirin (Aspirin) 81 mg PO DAILY [facility] Last Admin: 01/12/18 08:05 Dose: 81 mg Atorvastatin Calcium (Lipitor) 20 mg PO BEDTIME [facility] Last Admin: 01/11/18 20:17 Dose: Not Given Lactobacillus Rhamnosus (Culturelle) 1 cap PO BID [facility] Last Admin: 01/12/18 08:05 Dose: 1 cap Levothyroxine Sodium (Levothyroxine) 75 mcg PO DAILY@0730 [facility] Last Admin: 01/12/18 08:05 Dose: 75 mcg Lisinopril (Prinivil) 5 mg PO DAILY [facility] Last Admin: 01/12/18 08:06 Dose: 5 mg Metoprolol Tartrate (Lopressor) 100 mg PO BID [facility] Last Admin: 01/12/18 08:05 Dose: 100 mg Ondansetron HCl (Zofran Odt) 4 mg PO Q6H PRN PRN Reason: Nausea able to take PO Ondansetron HCl (Zofran) 4 mg IV Q6H PRN PRN Reason: Nausea/Vomiting Oxycodone HCl (Oxycodone) 5 mg PO Q4H PRN PRN Reason: Pain (moderate 4-6) Pantoprazole Sodium (Protonix) 40 mg PO BIDAC [facility] Last Admin: 01/12/18 08:05 Dose: 40 mg Tizanidine HCl (Zanaflex) 4 mg PO TID PRN PRN Reason: Spasms Vancomycin HCl (Vancocin 250 Mg/5 Ml Soln) 125 mg PO QID [facility] Last Admin: 01/12/18 06:42 Dose: 125 mg Venlafaxine HCl (Effexor Xr) 150 mg PO DAILY [facility] Last Admin: 01/12/18 08:07 Dose: 150 mg Discontinued Medications Etodolac (Etodolac) 400 mg PO BID [facility] Sodium Chloride (Normal Saline) 1,000 mls @ 999 mls/hr IV ASDIRECTED [facility] Last Admin: 01/11/18 09:24 Dose: 999 mls/hr Sodium Chloride (Normal Saline) 1,000 mls @ 125 mls/hr IV ASDIRECTED [facility] Last Admin: 01/12/18 06:43 Dose: 125 mls/hr Loperamide HCl (Imodium) 4 mg PO ONETIME ONE Stop: 01/11/18 09:31 Last Admin: 01/11/18 09:24 Dose: 4 mg - Exam Quality Assessment: No: Supplemental Oxygen General: Alert, Oriented, Cooperative, No Acute Distress Neck: Supple Lungs: Clear to Auscultation, Normal Respiratory Effort Cardiovascular: Regular Rate, Regular Rhythm GI/Abdominal Exam: Soft, No Distention Extremities: No Pedal Edema Skin: Warm, Intact Psy/Mental Status: Alert, Normal Affect - Problem List & Annotations (1) Clostridium difficile diarrhea SNOMED Code(s): 9732500356620 Code(s): A04.72 - ENTEROCOLITIS D/T CLOSTRIDIUM DIFFICILE, NOT SPCF RECUR Status: Acute Current Visit: Yes (2) Dehydration SNOMED Code(s): 56387440 Code(s): E86.0 - DEHYDRATION Status: Acute Current Visit: Yes (3) Jaw pain SNOMED Code(s): 568623225 Code(s): R68.84 - JAW PAIN Status: Acute Current Visit: Yes (4) Ovarian cancer on left SNOMED Code(s): 069434062 Code(s): C56.2 - MALIGNANT NEOPLASM OF LEFT OVARY Status: Chronic Current Visit: Yes (5) CKD (chronic kidney disease), stage III SNOMED Code(s): 547281599 Code(s): N18.3 - CHRONIC KIDNEY DISEASE, STAGE 3 (MODERATE) Status: Chronic Current Visit: Yes - Problem List Review Problem List Initiated/Reviewed/Updated: Yes - My Orders Last 24 Hours: My Active Orders 01/11/18 11:26 Resuscitation Status Routine 01/11/18 12:25 Isolation [COMM] Routine 01/11/18 13:20 Patient Status [ADT] Routine Intake and Output [RC] QSHIFT May Shower [RC] ASDIRECTED Notify Provider Vital Signs [RC] ASDIRECTED Oxygen Therapy [RC] PRN Up With Assistance [RC] ASDIRECTED VTE/DVT Education [RC] Per Unit Routine Vital Signs [RC] Q4H Acetaminophen [Tylenol] 650 mg PO Q4H PRN Ondansetron [Zofran ODT] 4 mg PO Q6H PRN Ondansetron [Zofran] 4 mg IV Q6H PRN oxyCODONE 5 mg PO Q4H PRN tiZANidine [Zanaflex] 4 mg PO TID PRN Sequential Compression Device [OM.PC] Per Unit Routine 01/11/18 15:41 Assess Discharge Needs [OM.PC] Routine 01/11/18 16:00 Vancomycin [Vancocin 250 MG/5 ML Soln] 125 mg PO QID 01/11/18 16:30 Pantoprazole [ProTONIX] 40 mg PO BIDAC 01/11/18 18:42 PT Screening [OM.PC] Routine 01/11/18 21:00 Lactobacillus Rhamnosus GG [Culturelle] 1 cap PO BID Metoprolol Tartrate [Lopressor] 100 mg PO BID atorvaSTATin [Lipitor] 20 mg PO BEDTIME 01/11/18 Lunch Mechanical Soft Diet [DIET] 01/12/18 07:30 Levothyroxine 75 mcg PO DAILY@0730 01/12/18 09:00 Aspirin 81 mg PO DAILY Lisinopril [Prinivil] 5 mg PO DAILY Venlafaxine [Effexor XR] 150 mg PO DAILY 01/12/18 10:33 Discontinue Telemetry Monitoring [Cardiac Monitoring Discontinue] [RC] Click to Edit Convert IV to Saline Lock [OM.PC] Routine 01/13/18 05:00 BASIC METABOLIC PANEL,BMP [CHEM] Timed CBC W/O DIFF,HEMOGRAM [HEME] Timed (1) - Plan Plan:: ASSESSMENT AND PLAN - Clostridium difficile colitis - no recent antibiotics. Suspect immunosuppressed state as the cause. Infection is complicated by active malignancy and chemotherapy. volume status much better today. Having diarrhea but no pain or fevers. -Vancomycin 125 mg 4 times daily -saline lock IV fluids -Contact precautions -probiotics Jaw pain/pressure - Some concern for anginal equivalent but both troponins were normal and she has been stable overnight. Suspect gastrointestinal source in the setting of infection and recent chemotherapy. -Twice daily PPI initiated -Additional symptomatic management Stage III chronic kidney disease - Creatinine level improved overnight with hydration. -encourage oral intake -Repeat labs in the morning Ovarian cancer - Followed by the [facility], receiving chemotherapy locally. Has had recent chemotherapy. -Outpatient follow-up, planning to transfer care to the [facility] to be near her family in the [facility] Maintenance issues - - DVT prophylaxis - Mechanical - GI prophylaxis - PPI - Nutrition - mechanical soft Disposition - Anticipate discharge home after the hospital stay, possibly tomorrow if stable overnight Primary care physician - Lilibeth Woodruff M.D.
[2018-01-12] MEDS: Acetaminophen 325 MG Tab PO PRN ×2 (11:52→20:48)
[2018-01-12] MEDS: atorvaSTATin 20 MG Tab PO SCH (20:50)
[2018-01-13] MEDS: Acetaminophen 325 MG Tab PO PRN (04:14)
[2018-01-13] MEDS: Vancomycin 250 MG/5 ML ML Oral Solution PO SCH ×2 (06:05→10:45)
[2018-01-13 07:56] VITALS: BP 135/79
[2018-01-13] MEDS: Pantoprazole 40 MG Tab.CR PO SCH (07:59)
[2018-01-13] MEDS: Levothyroxine 75 MCG Tab PO SCH (07:59)
[2018-01-13] MEDS: Lisinopril 5 MG Tab PO SCH (08:00)
[2018-01-13] MEDS: Lactobacillus Rhamnosus GG (Probiotic) Cap PO SCH (08:00)
[2018-01-13] MEDS: Aspirin 81 MG Tab.Chew PO SCH (08:00)
[2018-01-13] MEDS: Venlafaxine 75 MG Cap.ER PO SCH (08:01)
[2018-01-13] MEDS: Metoprolol Tartrate 50 MG Tab PO SCH (08:01)
--- NOTE | 2018-01-13 09:54 | CR ---
Chest 1V Frontal HISTORY: sob COMPARISON: 01/08/2018 FINDINGS: Lungs appear clear and normally aerated. Cardiomediastinal silhouette is within normal limits for the AP technique. Atherosclerotic aorta is redemonstrated. No vascular redistribution or pleural fluid c an be seen there are degenerative hypertrophic changes both shoulders. Anterolateral aspects are note d along the thoracic spine. IMPRESSION: No acute chest abnormality or significant interval change is identified.
--- NOTE | 2018-01-13 12:41 | PCM.DCSUM1 ---
Discharge Summary - Hospital Course Brief History: This patient is a 77-year-old woman with a known history of ovarian cancer currently receiving chemotherapy. She was admitted through the emergency department with diarrhea secondary to C. difficile colitis as well as jaw and shoulder pain. - Discharge Data Discharge Date: 01/13/18 Discharge Disposition: Home, Self-Care 01 Condition: Fair - Discharge Diagnosis/Problem(s) (1) Jaw pain SNOMED Code(s): 505676547 ICD Code: R68.84 - JAW PAIN Status: Acute Current Visit: Yes (2) Clostridium difficile diarrhea SNOMED Code(s): 2140115577426 ICD Code: A04.72 - ENTEROCOLITIS D/T CLOSTRIDIUM DIFFICILE, NOT SPCF RECUR Status: Acute Current Visit: Yes (3) Ovarian cancer on left SNOMED Code(s): 982808031 ICD Code: C56.2 - MALIGNANT NEOPLASM OF LEFT OVARY Status: Chronic Current Visit: Yes (4) CKD (chronic kidney disease), stage III SNOMED Code(s): 571397476 ICD Code: N18.3 - CHRONIC KIDNEY DISEASE, STAGE 3 (MODERATE) Status: Chronic Current Visit: Yes (5) HTN, Essential hypertension SNOMED Code(s): 90633099 ICD Code: I10 - ESSENTIAL (PRIMARY) HYPERTENSION Status: Chronic Current Visit: No - Patient Summary/Data Hospital Course: Sofia presented to the ER on the morning of admission with bilateral jaw pressure and left shoulder pain. She reports onset of moderately severe pressure in her jaws that radiated to the left shoulder. She will not call it pain but says it was more of a pressure discomfort. When the pain did not get better after a few minutes she decided take a nitroglycerin which completely relieved the pain. She has never had pain like this before. She was concerned because her had jaw pain at the time of a heart attack years ago. She also reports having multiple watery diarrheal stools over the past several days. She has had significant nausea for the last 3 or 4 days and has had very little to eat or drink other than supper last night. She is not aware of any fevers. She does not have any abdominal pain. She has not vomited. No recent antibiotics. She has had recent chemotherapy for her ovarian cancer. Workup in the emergency room revealed leukopenia and evidence for Clostridium difficile colitis. EKG did not suggest ischemia and troponin was undetectable. She was admitted for management of Clostridium difficile colitis. On admission she was given IV fluids for hydration and started on oral antibiotic therapy with vancomycin 125 mg 4 times daily. She improved over the next 2 days of hospitalization and by the time of discharge was having no further episodes of diarrhea. White blood cell count was monitored daily and remained low throughout her hospital stay. This was thought secondary to her ongoing chemotherapy for management of ovarian carcinoma. Serial troponin levels were obtained in all remained within normal range and she had no further symptoms of chest pain or pressure. Further review of her symptoms of jaw pain were felt to be consistent with a GI source likely esophageal reflux. She will be discharged home on additional 12 days of oral antibiotic therapy with vancomycin as well as a probiotic and oral Protonix. Activity will be as tolerated and she will resume her usual diet. Follow-up appointments have been arranged with both oncology as well as her primary care provider. - Patient Instructions Diet: Usual Diet as Tolerated Activity: As Tolerated Other/Special Instructions: Follow-up appointments with oncology and primary care as scheduled - Discharge Plan Prescriptions/Med Rec: Lactobacillus Rhamnosus GG [Culturelle] 1 cap PO BID #60 cap Vancomycin [Vancocin 250 MG/5 ML Soln] 125 mg PO QID #120 ml Home Medications: Home Meds Aspirin 81 mg PO DAILY 06/16/13 [History] Etodolac 400 mg PO BID 06/16/13 [History] Levothyroxine Sodium [Synthroid] 75 mcg PO DAILY 06/16/13 [History] Lisinopril [Prinivil] 5 mg PO DAILY 06/16/13 [History] Nitroglycerin [Nitrostat] 0.4 mg SL ASDIRECTED PRN 06/16/13 [History] Venlafaxine HCl [Venlafaxine ER] 150 mg PO DAILY 06/16/13 [History] Multivitamin [Multivitamins] 1 each PO DAILY 08/21/13 [History] Metoprolol Tartrate [Lopressor] 100 mg PO BID #60 tablet 09/20/14 [Rx] Albuterol Sulfate [Proair Hfa] 2 puff INH Q4H PRN 09/24/17 [History] atorvaSTATin [Lipitor] 20 mg PO DAILY 09/24/17 [History] tiZANidine [Zanaflex] 4 mg PO TID PRN 09/24/17 [History] Prochlorperazine Maleate [Compazine] 10 mg PO ASDIRECTED PRN 01/08/18 [History] Lactobacillus Rhamnosus GG [Culturelle] 1 cap PO BID #60 cap 01/13/18 [Rx] Vancomycin [Vancocin 250 MG/5 ML Soln] 125 mg PO QID #120 ml 01/13/18 [Rx] Patient Handouts: Clostridium Difficile Infection, [id number] Referrals: Kassy Hall MD [Ordering Only Provider] - 01/22/18 9:00 am ( Infusion center at 9:30 for 4 hrs) Faith Mackay CNM [Primary Care Provider] - 01/20/18 1:30 pm (lab first at 1:00) - Discharge Summary/Plan Comment DC Time >30 min.: No - Patient Data Vitals - Most Recent: Last Vital Signs Temp 97.4 F 01/13/18 07:48 Pulse 66 01/13/18 08:01 Resp 18 01/13/18 07:48 BP 135/79 01/13/18 08:01 Pulse Ox 100 01/13/18 07:48 Weight - Most Recent: 195 lb 9.6 oz I&O - Last 24 hours: Intake & Output 01/12/18 01/13/18 01/13/18 22:59 06:59 14:59 Intake Total 940 400 280 Balance 940 400 280 Lab Results - Last 24 hrs: Laboratory Results - last 24 hr 01/13/18 01/13/18 Range/Units 05:00 05:00 WBC 2.2 L (4.5-11.0) K/uL RBC 3.24 L (3.30-5.50) M/uL Hgb 10.2 L (12.0-15.0) g/dL Hct 32.1 L (36.0-48.0) % MCV 99 H (80-98) fL MCH 32 H (27-31) pg MCHC 32 (32-36) % Plt Count 325 (150-400) K/uL Sodium 144 (140-148) mmol/L Potassium 4.5 (3.6-5.2) mmol/L Chloride 111 H (100-108) mmol/L Carbon Dioxide 25 (21-32) mmol/L Anion Gap 12.5 (5.0-14.0) mmol/L BUN 14 D (7-18) mg/dL Creatinine 1.1 H (0.6-1.0) mg/dL Est Cr Clr Drug Dosing 34.95 mL/min Estimated GFR (MDRD) 48 L (>60) Glucose 85 (74-106) mg/dL Calcium 8.4 L (8.5-10.1) mg/dL ANNIE Results - Last 24 hrs: Microbiology 01/11/18 09:23 Stool Culture - Preliminary Stool / Feces NORMAL ENTERIC MANISH 2 DAYS - Final NEGATIVE FOR SHIGA TOXIN 1 - Final NEGATIVE FOR SHIGA TOXIN 2 Med Orders - Current: Current Medications Acetaminophen (Tylenol) 650 mg PO Q4H PRN PRN Reason: Pain (Mild 1-3)/fever Last Admin: 01/13/18 04:14 Dose: 650 mg Aspirin (Aspirin) 81 mg PO DAILY [facility] Last Admin: 01/13/18 08:00 Dose: 81 mg Atorvastatin Calcium (Lipitor) 20 mg PO BEDTIME [facility] Last Admin: 01/12/18 20:50 Dose: Not Given Lactobacillus Rhamnosus (Culturelle) 1 cap PO BID [facility] Last Admin: 01/13/18 08:00 Dose: 1 cap Levothyroxine Sodium (Levothyroxine) 75 mcg PO DAILY@0730 [facility] Last Admin: 01/13/18 07:59 Dose: 75 mcg Lisinopril (Prinivil) 5 mg PO DAILY [facility] Last Admin: 01/13/18 08:00 Dose: 5 mg Metoprolol Tartrate (Lopressor) 100 mg PO BID [facility] Last Admin: 01/13/18 08:01 Dose: 100 mg Ondansetron HCl (Zofran Odt) 4 mg PO Q6H PRN PRN Reason: Nausea able to take PO Ondansetron HCl (Zofran) 4 mg IV Q6H PRN PRN Reason: Nausea/Vomiting Oxycodone HCl (Oxycodone) 5 mg PO Q4H PRN PRN Reason: Pain (moderate 4-6) [facility] Admin: 01/13/18 07:59 Dose: 40 mg Tizanidine HCl (Zanaflex) 4 mg PO TID PRN PRN Reason: Spasms Vancomycin HCl (Vancocin 250 Mg/5 Ml Soln) 125 mg PO QID [facility] Last Admin: 01/13/18 10:45 Dose: 125 mg Venlafaxine HCl (Effexor Xr) 150 mg PO DAILY [facility] Last Admin: 01/13/18 08:01 Dose: 150 mg Discontinued Medications Etodolac (Etodolac) 400 mg PO BID [facility] Sodium Chloride (Normal Saline) 1,000 mls @ 999 mls/hr IV ASDIRECTED [facility] Last Admin: 01/11/18 09:24 Dose: 999 mls/hr Sodium Chloride (Normal Saline) 1,000 mls @ 125 mls/hr IV ASDIRECTED [facility] Last Admin: 01/12/18 06:43 Dose: 125 mls/hr Loperamide HCl (Imodium) 4 mg PO ONETIME ONE Stop: 01/11/18 09:31 Last Admin: 01/11/18 09:24 Dose: 4 mg - Exam General: Reports: Alert, Oriented, Cooperative, No Acute Distress Lungs: Reports: Clear to Auscultation, Normal Respiratory Effort Cardiovascular: Reports: Regular Rate, Regular Rhythm, No Murmurs GI/Abdominal Exam: Soft, Non-Tender, No Organomegaly, No Distention Extremities: Non-Tender, No Pedal Edema Skin: Reports: Warm, Dry, Intact
== END 2018-01-13 13:15 | disposition home or self-care (01) | DRG 372 ==
LOC: JP.ED 08:23 → JP.MS 11:24
PROVIDERS: ADMIT Internal Medicine; ATTEND Hospitalist
DX: A04.72 Enterocolitis due to Clostridium difficile, not specified as recurrent (principal); C56.2 Malignant neoplasm of left ovary; E86.0 Dehydration; C56.9 Malignant neoplasm of unspecified ovary; I10 Essential (primary) hypertension; R68.84 Jaw pain; I12.9 Hypertensive chronic kidney disease with stage 1 through stage 4 chronic kidney disease, or unspecified chronic kidney disease; Z88.2 Allergy status to sulfonamides; N18.3 Chronic kidney disease, stage 3 (moderate); E03.9 Hypothyroidism, unspecified; F32.9 Major depressive disorder, single episode, unspecified; Z79.899 Other long term (current) drug therapy; Z88.8 Allergy status to other drugs, medicaments and biological substances; F17.200 Nicotine dependence, unspecified, uncomplicated
CPT/HCPCS: 36415; 71045 ×2; 80053; 84484; 85025; 87046; 87493; 87899 ×2; 96360; 99285; A9270; J7040; 80048; 81001; 83735; 85027; 93306

== ENCOUNTER 2018-03-07 09:37 | Day surgery (SDC) | payer MEDICARE, OTHER ==
[~2018-03-07 09:37] MED LIST: Bupivacaine 0.5% 50 ML MDV ONE; Dextrose 5%-Lactated Ringers 1,000 ML IV SCH; Lidocaine 1% with EPINEPHrine 1:100,000 50 ML MDV ONE; ceFAZolin 2 GM in Premix Bag 1 BAG IV ONE
[2018-03-07] MEDS ORDERED: ceFAZolin 2 GM in Premix Bag 1 BAG IV ONE (11:15)
[2018-03-07] MEDS ORDERED: Dextrose 5%-Lactated Ringers 1,000 ML IV SCH (11:15)
[2018-03-07] MEDS: Lidocaine 1% with EPINEPHrine 1:100,000 50 ML MDV ONE ×2 (12:51→13:38)
[2018-03-07] MEDS: Bupivacaine 0.5% 50 ML MDV ONE ×2 (12:51→13:38)
[2018-03-07] MEDS ORDERED: fentaNYL 100 MCG/2 ML SDV ONE (13:28)
[2018-03-07] MEDS ORDERED: Propofol 200 MG/20 ML SDV ONE (13:28)
[2018-03-07 15:01] VITALS: BP 138/76
--- NOTE | 2018-03-07 15:09 | CR ---
Chest 1V Frontal INDICATION: CHECKING FOR PNEUMO. COMPARISON: None FINDINGS: AP portable chest. Left subclavian Port-A-Cath in place with tip in the left brachiocephalic vein. No pneumothorax or ot her complication seen.
--- NOTE | 2018-03-11 10:05 | OR ---
DATE OF PROCEDURE: 03/07/2018 PREOPERATIVE DIAGNOSIS: Metastatic ovarian cancer, poor venous access. POSTOPERATIVE DIAGNOSIS: Metastatic ovarian cancer, poor venous access. PROCEDURE: Left subclavian PowerPort placement. SURGEON: Jose Nelson MD ANESTHESIA: IV anesthesia with monitored anesthesia care. INDICATION: This 77-year-old white female has metastatic ovarian cancer. Her peripheral veins are becoming exhausted and a request is made for placement of a central venous IV access device. I counseled her for placement of a PowerPort including risks and alternatives, and she gave her informed consent to proceed. DESCRIPTION OF PROCEDURE: After adequate IV anesthesia was obtained, the patient's upper chest, shoulders, and neck were prepped and draped in the usual sterile fashion. Time-out was held. Lidocaine 1% with epinephrine in a 50:50 mix with 0.5% Marcaine was infiltrated about the left infraclavicular area. The patient was placed in steep Trendelenburg. The left subclavian vein was cannulated with a needle, and a wire was passed through the needle into the vein. Fluoroscopically, it was noted to go down into her superior vena cava. The needle was removed. A transverse incision was then made at the wire exit site to accept the reservoir. The reservoir and catheter which had previously been attached and flushed with heparinized saline was obtained. The reservoir was placed down in the pocket formed through this incision inferior to the left clavicle. The catheter was measured out to appropriate length and cut so that it would end up in the superior vena cava. The dilator was then passed over the wire, and the dilator was removed. The dilator with introducer were then passed over the wire, and the wire and dilator were removed leaving the introducer in the vein. The catheter was then passed through the introducer into the vein, and the introducer was removed leaving the catheter in the vein. The reservoir was anchored with 2 -0 silk suture to the underlying fascia. The reservoir was accessed with a noncoring needle, and it easily aspirated and flushed. We checked it fluoroscopically, and it appeared that the reservoir was placed further down in the pocket so that the end of the catheter appears to be in the innominate vein. The subcutaneous tissue was closed with interrupted 3- 0 Vicryl suture; 4-0 Vicryl using a subcuticular stitch was placed to approximate the skin. Steri-Strips were applied and a sterile dressing. The patient tolerated the procedure well and was brought to recovery room in good condition. Jose Nelson MD /[id number] MTDD
== END 2018-03-07 15:20 | disposition home or self-care (01) ==
LOC: JP.SDS 09:37
PROVIDERS: ATTEND Surgery
DX: T82.898A Other specified complication of vascular prosthetic devices, implants and grafts, initial encounter (principal); C56.9 Malignant neoplasm of unspecified ovary; I13.0 Hypertensive heart and chronic kidney disease with heart failure and stage 1 through stage 4 chronic kidney disease, or unspecified chronic kidney disease; N18.9 Chronic kidney disease, unspecified; E03.9 Hypothyroidism, unspecified; F32.9 Major depressive disorder, single episode, unspecified; Z88.2 Allergy status to sulfonamides; Z88.5 Allergy status to narcotic agent
CPT/HCPCS: 36561; 71045; C1788; J0690; J1642; J2704; J3010; J7042

== ENCOUNTER 2018-03-19 08:32 | Day surgery (SDC) | payer MEDICARE, OTHER ==
[2018-03-19] MEDS ORDERED: Lactated Ringers 1,000 ML IV SCH (09:45)
[2018-03-19] MEDS ORDERED: Lidocaine 1% with EPINEPHrine 1:100,000 50 ML MDV ONE (10:52)
[2018-03-19] MEDS ORDERED: Bupivacaine 0.5% 50 ML MDV ONE (10:52)
[2018-03-19] MEDS ORDERED: Propofol 200 MG/20 ML SDV ONE ×2 (11:17→12:58)
[2018-03-19] MEDS ORDERED: Midazolam 1 MG/ML 2 ML SDV ONE (11:17)
[2018-03-19] MEDS ORDERED: fentaNYL 100 MCG/2 ML SDV ONE (11:17)
[2018-03-19] MEDS ORDERED: ceFAZolin 1 GM in Premix Bag 1 BAG IV ONE (11:30)
--- NOTE | 2018-03-19 13:43 | CR ---
CHEST: Portable CLINICAL HISTORY:Catheter insertion COMPARISON:03/07/2018 FINDINGS: Heart size and pulmonary vascularity are normal. There are atherosclerotic changes in the aorta.. Patient has a left subclavian [id number] catheter. The tip is in the brachiocephalic vein. There are severe degenerative changes in the right shoulder. IMPRESSION: No acute cardiopulmonary process Left subclavian catheter remains in place
[2018-03-19 14:07] VITALS: BP 148/76
--- NOTE | 2018-03-20 08:04 | OR ---
DATE OF PROCEDURE: 03/19/2018 PREOPERATIVE DIAGNOSIS: Nonfunctional left subclavian PowerPort, reservoir has flipped. POSTOPERATIVE DIAGNOSIS: Nonfunctional left subclavian PowerPort, reservoir has flipped. PROCEDURE: Replacement of the left subclavian PowerPort. SURGEON: Jose Nelson MD. ANESTHESIA: IV anesthesia with monitored anesthesia care. INDICATION: This 77-year-old white female has ovarian cancer. A left subclavian PowerPort was placed. They tried to access this yesterday and it appeared to have flipped over. She is taken to the operating room for repair of this. I counseled her for that, and she gave her informed consent to proceed. DESCRIPTION OF PROCEDURE: After adequate IV anesthesia was obtained, the patient's upper chest, shoulders, and neck were prepped and draped in the usual sterile fashion. Time-out was held. Lidocaine 1% with epinephrine in a 50:50 mix with 0.5% Marcaine was infiltrated about the left infraclavicular area. An incision was made through her infraclavicular scar and the underlying PowerPort was identified and indeed it had flipped over. In the process of trying to sew it back down in the correct position, the catheter came out too far to be used, and we could not get it to go back in. We then opened the catheter, placed a wire through it, and then removed the catheter and reservoir. A new catheter was measured to appropriate length, attached to a new reservoir which was then flushed with heparinized saline. The dilator with introducer were passed over the wire, and the wire and dilator were removed leaving the introducer in the vein. The catheter was passed through the introducer into the vein and the introducer was removed. We then anchored the PowerPort with 2-0 silk suture to the underlying fascia as best we could at three places. It was accessed and aspirated blood and it was then flushed with heparinized saline. All looked well. Fluoroscopically, it looked good. The subcutaneous tissue was closed with a running stitch of 3-0 Vicryl, 4-0 Vicryl using a subcuticular stitch was placed to approximate the skin. Steri-Strips and a sterile dressing were applied. She tolerated the procedure well and was brought to the recovery room in a good condition. Jose Nelson MD /[id number] ROSS
== END 2018-03-19 14:22 | disposition home or self-care (01) ==
LOC: JP.SDS 08:32
PROVIDERS: ATTEND Surgery
DX: T82.514A Breakdown (mechanical) of infusion catheter, initial encounter (principal); I13.0 Hypertensive heart and chronic kidney disease with heart failure and stage 1 through stage 4 chronic kidney disease, or unspecified chronic kidney disease; N18.9 Chronic kidney disease, unspecified; I50.9 Heart failure, unspecified; E78.00 Pure hypercholesterolemia, unspecified; Z88.2 Allergy status to sulfonamides; Z88.5 Allergy status to narcotic agent
CPT/HCPCS: 71045; 71045-26; C1788; J0690; J1642; J2250; J2704; J3010; J7120

== ENCOUNTER 2018-03-29 11:04 | Emergency (ER) | payer MEDICARE, OTHER ==
[2018-03-29 11:30] VITALS: BP 123/96
[2018-03-29] MEDS ORDERED: Sodium Chloride 0.9% 10 ML Syringe FLUSH PRN (11:35)
[2018-03-29] MEDS ORDERED: Lactated Ringers 1,000 ML IV ONE ×2 (11:35→14:16)
[2018-03-29] MEDS ORDERED: Ondansetron 4 MG/2 ML SDV IVPUSH ONE ×2 (12:03→14:16)
[2018-03-29] MEDS ORDERED: Meclizine 25 MG Tab PO ONE (12:20)
--- NOTE | 2018-03-29 12:25 | EDM.PDOC ---
ED HPI GENERAL MEDICAL PROBLEM - General Chief Complaint: Gastrointestinal Problem Stated Complaint: WEAKNESS, LIGHT HEADED Time Seen by Provider: 03/29/18 11:13 - History of Present Illness INITIAL COMMENTS - FREE TEXT/NARRATIVE: Sofia presents today with complaints of abdominal cramping type pain and diarrhea since 0700 today with >6 stools. She reports history of loose stools for the past three days since chemo infusion. She states today she drank water and coffee with her morning medications and proceeded to have watery stool after stool this morning. She also complains of feeling weak, nauseated and dizzy. She reports recent chemotherapy infusion, blood transfusion of 2 PRBC this past week. She denies fever, chills, vomiting. - Related Data Allergies Allergy/AdvReac Type Severity Reaction Status Date / Time Sulfa (Sulfonamide Allergy Unknown Rash Verified 03/29/18 11:33 Antibiotics) codeine AdvReac Unknown Vomiting Verified 03/29/18 11:33 Home Meds: Home Meds Aspirin 81 mg PO DAILY 06/16/13 [History] Levothyroxine Sodium [Synthroid] 75 mcg PO DAILY 06/16/13 [History] Lisinopril [Prinivil] 5 mg PO DAILY 06/16/13 [History] Nitroglycerin [Nitrostat] 0.4 mg SL ASDIRECTED PRN 06/16/13 [History] Venlafaxine HCl [Venlafaxine ER] 150 mg PO DAILY 06/16/13 [History] Multivitamin [Multivitamins] 1 each PO DAILY 08/21/13 [History] Metoprolol Tartrate [Lopressor] 100 mg PO BID #60 tablet 09/20/14 [Rx] Albuterol Sulfate [Proair Hfa] 2 puff INH Q4H PRN 09/24/17 [History] tiZANidine [Zanaflex] 4 mg PO TID PRN 09/24/17 [History] Prochlorperazine Maleate [Compazine] 10 mg PO ASDIRECTED PRN 01/08/18 [History] Lactobacillus Rhamnosus GG [Culturelle] 1 cap PO BID #60 cap 01/13/18 [Rx] Pantoprazole [ProTONIX] 40 mg PO DAILY #30 tab.cr 01/13/18 [Rx] Acetaminophen/HYDROcodone [[place] 325-5 MG] 1 - 2 tab PO Q4HR PRN 02/27/18 [ History] Cholecalciferol (Vitamin D3) [Vitamin D] 1,000 units PO DAILY 02/27/18 [History] Cyanocobalamin (Vitamin B-12) [Vitamin B-12] 2,500 mcg SL DAILY 02/27/18 [ History] Furosemide 10 mg PO DAILY 02/27/18 [History] Past Medical History HEENT History: Reports: Hard of Hearing, Impaired Vision Other HEENT History: wears glasses Cardiovascular History: Reports: Heart Murmur, Hypertension, Syncope Respiratory History: Reports: Asthma, Bronchitis, Recurrent, Other (See Below) Other Respiratory History: fluid in lungs Gastrointestinal History: Reports: None Genitourinary History: Reports: Other (See Below) Other Genitourinary History: 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 [employer] History: Reports: Musculoskeletal History: Reports: Arthritis, Back Pain, Chronic, Fibromyalgia Neurological History: Reports: Vertigo Other Neuro History: fibro myalgia Psychiatric History: Reports: Depression Endocrine/Metabolic History: Reports: Hypothyroidism, Obesity/BMI 30+ Hematologic History: Reports: Blood Transfusion(s) Oncologic (Cancer) History: Reports: Ovarian Dermatologic History: Reports: Other (See Below) Other Dermatologic History: open sores on body - Infectious Disease History Infectious Disease History: Reports: Chicken Pox, Measles, Mumps, Shingles - Past Surgical History Head Surgeries/Procedures: Reports: None HEENT Surgical History: Reports: None Cardiovascular Surgical History: Reports: None Respiratory Surgical History: Reports: Thoracentesis GI Surgical History: Reports: Appendectomy, Cholecystectomy, Colonoscopy, Hernia , Abdominal, Other (See Below) Other GI Surgeries/Procedures: colon resection r/t CA Female Surgical History: Reports: Hysterectomy, Oophorectomy, Salpingo- Oophorectomy Endocrine Surgical History: Reports: None Neurological Surgical History: Reports: None Musculoskeletal Surgical History: Reports: Knee Replacement Oncologic Surgical History: Reports: Other (See Below) Other Oncologic Surgeries/Procedures: colon resection; DUSTIN Dermatological Surgical History: Reports: None Social & Family History - Family History Family Medical History: Noncontributory Cardiac: Reports: Afib, Arrhythmia Respiratory: Reports: Asthma Neurological: Reports: CVA Oncologic: Reports: Breast, Lymphoma, Ovarian - Tobacco Use Smoking Status *Q: Never Smoker - Caffeine Use Caffeine Use: Reports: Coffee ED ROS GENERAL - Review of Systems Review Of Systems: See Below Constitutional: Reports: Weakness, Decreased Appetite. Denies: Fever, Chills HEENT: Reports: No Symptoms Respiratory: Denies: Shortness of Breath, Wheezing, Cough, Sputum, Hemoptysis Cardiovascular: Denies: Chest Pain, Dyspnea on Exertion, Edema, Lightheadedness , Palpitations, PND, Syncope Endocrine: Reports: No Symptoms GI/Abdominal: Reports: Abdominal Pain, Diarrhea, Decreased Appetite, Nausea. Denies: Black Stool, Bloody Stool, Constipation, Difficulty Swallowing, Flatus, Melena, Stool Incontinence, Vomiting : Reports: No Symptoms Musculoskeletal: Reports: No Symptoms Skin: Reports: Dryness, Bruising, Other (Bruising to left implanted port site) Neurological: Denies: Confusion, Dizziness, Headache, Numbness, Syncope, Tingling, Difficulty Walking, Weakness, Gait Disturbance Psychiatric: Reports: No Symptoms Hematologic/Lymphatic: Reports: No Symptoms Immunologic: Reports: No Symptoms ED EXAM, GI/ABD - Physical Exam Exam: See Below Exam Limited By: No Limitations General Appearance: Alert, WD/WN, Mild Distress Eyes: Bilateral: Normal Appearance, EOMI Ears: Normal External Exam, Normal Canal, Hearing Grossly Normal, Normal TMs Nose: Normal Inspection, Normal Mucosa, No Blood Throat/Mouth: Normal Inspection, Normal Lips, Normal Oropharynx, Normal Voice, No Airway Compromise Head: Atraumatic, Normocephalic Neck: Normal Inspection, Supple, Non-Tender, Full Range of Motion. No: Lymphadenopathy (R), Lymphadenopathy (L) Respiratory/Chest: No Respiratory Distress, Lungs Clear, Normal Breath Sounds, No Accessory Muscle Use, Chest Non-Tender Cardiovascular: Normal Peripheral Pulses, Regular Rate, Rhythm, No Edema, No Murmur, No Rub GI/Abdominal Exam: Soft, Non-Tender, No Organomegaly, No Distention, No Mass, Other (hyperactive bowel sounds). No: Guarding, Rigid, Rebound, Hernia Back Exam: Normal Inspection, Full Range of Motion. No: CVA Tenderness (R), CVA Tenderness (L) Extremities: Normal Inspection, Normal Range of Motion, Non-Tender, No Pedal Edema, Normal Capillary Refill Neurological: Alert, Oriented, Normal Cognition, Normal Reflexes, No Motor/ Sensory Deficits Psychiatric: Normal Affect, Normal Mood Skin Exam: Warm, Dry, Normal Color, Ecchymosis. No: Diaphoretic, Erythema, Increased Warmth Lymphatic: No Adenopathy Course - Vital Signs Last Recorded V/S: Last Vital Signs Temp 36.6 C 03/29/18 12:02 Pulse 71 03/29/18 12:02 Resp 14 03/29/18 12:02 BP 123/96 H 03/29/18 12:02 Pulse Ox 98 03/29/18 12:02 - Orders/Labs/Meds Orders: Active Orders 24 hr Category Date Time Status Saline Lock Insert [OM.PC] Routine Oth 03/29/18 11:35 Ordered Labs: Laboratory Tests 03/29/18 03/29/18 03/29/18 Range/Units 11:36 11:36 11:37 WBC 7.6 (4.5-11.0) K/uL RBC 3.54 (3.30-5.50) M/uL Hgb 11.3 L (12.0-15.0) g/dL Hct 34.2 L (36.0-48.0) % MCV 97 (80-98) fL MCH 32 H (27-31) pg MCHC 33 (32-36) % Plt Count 458 H (150-400) K/uL Add Manual Diff Yes Neutrophils % (Manual) 51 (36-66) % Band Neutrophils % 26 H (5-11) % Lymphocytes % (Manual) 18 L (24-44) % Monocytes % (Manual) 5 (2-6) % Sodium 140 (140-148) mmol/L Potassium 5.0 (3.6-5.2) mmol/L Chloride 104 (100-108) mmol/L Carbon Dioxide 27 (21-32) mmol/L Anion Gap 9.3 (5.0-14.0) mmol/L BUN 16 (7-18) mg/dL Creatinine 1.1 H (0.6-1.0) mg/dL Est Cr Clr Drug Dosing 34.95 mL/min Estimated GFR (MDRD) 48 L (>60) Glucose 131 H (74-106) mg/dL Calcium 8.7 (8.5-10.1) mg/dL Magnesium 1.6 L (1.8-2.4) mg/dL Total Bilirubin 0.6 D (0.2-1.0) mg/dL AST 22 (15-37) U/L ALT 22 (12-78) U/L Alkaline Phosphatase 118 H (46-116) U/L Total Protein 7.2 (6.4-8.2) g/dL Albumin 3.2 L (3.4-5.0) g/dL Globulin 4.0 H (2.3-3.5) g/dL Albumin/Globulin Ratio 0.8 L (1.2-2.2) Patient lab work reviewed with her, we will infuse MG+ IV along with LR. Patient in agreement with plan. Meds: Medications Discontinued Medications Generic Name Dose Route Start Last Admin Trade Name Freq PRN Reason Stop Dose Admin Lactated Ringer's 1,000 mls @ 1,000 mls/hr 03/29/18 11:35 03/29/18 12:06 Ringers, Lactated IV 03/29/18 12:34 1,000 mls/hr BOLUS ONE Administration Magnesium Sulfate 2 gm/ Premix 50 mls @ 25 mls/hr 03/29/18 13:00 03/29/18 13: 10 IV 03/29/18 14:59 25 mls/hr ONETIME ONE Administration Lactated Ringer's 1,000 mls @ 1,000 mls/hr 03/29/18 14:16 03/29/18 14:25 Ringers, Lactated IV 03/29/18 15:15 1,000 mls/hr BOLUS ONE Administration Meclizine HCl 25 mg 03/29/18 12:20 03/29/18 12:30 Antivert PO 03/29/18 12:21 25 mg ONETIME ONE Administration Ondansetron HCl 4 mg 03/29/18 12:03 03/29/18 12:06 Zofran IVPUSH 03/29/18 12:04 4 mg ONETIME ONE Administration Ondansetron HCl 4 mg 03/29/18 14:16 03/29/18 14:25 Zofran IVPUSH 03/29/18 14:17 4 mg ONETIME ONE Administration Sodium Chloride 10 ml 03/29/18 11:35 03/29/18 12:05 Saline Flush FLUSH 10 ml ASDIRECTED PRN Administration Keep Vein Open - Re-Assessments/Exams Free Text/Narrative Re-Assessment/Exam: 03/29/18 14:00 Patient status and labwork reviewed with Dr. [place], she is in agreement with plan. We will administer LR 2000ml IV total, discharge to home with loperamide for diarrhea. Sofia reports improvement of vertigo. Patient had no diarrhea stools while in the emergency room. Departure - Departure Time of Disposition: 15:50 Disposition: Home, Self-Care 01 Condition: Fair Clinical Impression: Diarrhea, Nausea, Side effect of drug - Discharge Information Instructions: Nausea, Adult, [id number], Diarrhea, Adult, [id number] Referrals: Faith Mackay CNM [Primary Care Provider] - Forms: ED Department Discharge Additional Instructions: You have been evaluated and treated for diarrhea and nausea today. You were given zofran 4 mg IV x 2 doses for nausea, IV magnesium and IV fluids to help with hydration and electrolytes. You may take loperamide 2 mg by mouth as directed. Take two tablets (4mg) after first diarrhea stool. Then you may take one tablet (2mg) by mouth after each diarrhea stool up to a total of 16 mg total per day. Follow up with your primary provider in 3 to 7 days for a recheck. Keep yourself hydrated by drinking plenty of fluids. Return for worsening, issues or concerns. - My Orders Last 24 Hours: My Active Orders 03/29/18 11:35 Saline Lock Insert [OM.PC] Routine - Assessment/Plan Last 24 Hours: My Active Orders 03/29/18 11:35 Saline Lock Insert [OM.PC] Routine Assessment:: Diarrhea, Nausea, Side effect of drug - chemotherapy agent Plan: Diarrhea, Nausea, Side effect of drug - chemotherapy Patient evaluated and treated for diarrhea and nausea today. She was given zofran 4 mg IV x 2 doses for nausea, IV magnesium and IV fluids to help with hydration and electrolytes. She may take loperamide 2 mg by mouth as directed. Take two tablets (4mg) after first diarrhea stool. Then you may take one tablet (2mg) by mouth after each diarrhea stool up to a total of 16 mg total per day. Follow up with primary provider in 3 to 7 days for a recheck. Keep hydrated by drinking plenty of fluids. Return for worsening, issues or concerns.
[2018-03-29] MEDS ORDERED: Magnesium Sulfate/Water 2 GM in Premix Bag 1 BAG IV ONE ×2 (12:50→13:00)
== END 2018-03-29 16:05 | disposition home or self-care (01) ==
LOC: JP.ED 11:04
DX: R19.7 Diarrhea, unspecified (principal); R11.10 Vomiting, unspecified; T45.1X5A Adverse effect of antineoplastic and immunosuppressive drugs, initial encounter; C56.9 Malignant neoplasm of unspecified ovary; E03.9 Hypothyroidism, unspecified; I10 Essential (primary) hypertension; J45.909 Unspecified asthma, uncomplicated; Z88.2 Allergy status to sulfonamides; Z88.5 Allergy status to narcotic agent
CPT/HCPCS: 36415; 80053; 83735; 85025; 96361; 96365; 96366; 96375; 99284; A9270; J2405; J3475; J7050; J7120; 99283